=== PATIENT | female | born 1975 | race Hispanic/Latino ===

== ENCOUNTER 2016-09-09 10:28 | Outpatient (CLI) | payer OTHER ==
--- NOTE | 2016-09-09 16:03 | Mammography Report ---
BILATERAL DIGITAL DIAGNOSTIC MAMMOGRAM with CAD and BILATERAL BREAST ULTRASOUND: 09/09/16 CLINICAL: Left breast pain. COMPARISON:03/09/14 bilateral mammogram and 09/27/14 left breast ultrasound FINDINGS: The breasts are heterogeneously dense, which may obscure small masses.New right outer asymmetry on the CC view and a new partially circumscribed asymmetry near a palpable marker on the left MLO view. Ultrasound of the right breast (including all four quadrants and the retroareolar area) was performed and demonstrated numerous benign cysts. A cystic cluster at 11 o'clock 5 cm from the nipple measures 1.0 x 0.3 x 0.6 cm. A benign cyst at 12:30 o'clock 6 cm from the nipple measures 4 x 4 by 4 mm. A benign cystic cluster at 12:30 o'clock 3 cm from the nipple measures 1.2 x 0.8 x 0.6 cm. A benign cystic cluster at 8 o'clock 2 cm from the nipple measures 0.9 x 0.5 x 0.8 cm and a subareolar benign cyst at 3 o'clock measures 0.7 x 0.6 x 0.37 m. No solid mass or shadowing. Ultrasound of the left breast (including all four quadrants and the retroareolar area) was performed. Stable duct ectasia and small cysts at 9:30 o'clock 4 cm from nipple. This subsegmental duct ectasia measures 4.2 x 1.7 x 3.2 cm. A benign cyst at 10 o'clock 8 cm from the nipple measures 1.8 x 0.7 x 1.8 cm and correlates with the new mammographic asymmetry. No solid mass or shadowing. 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 BI-RADS CATEGORY: 2 -- Benign RECOMMENDATION: Routine mammographic screening in one year. COMMENT: Patient follow-up letters are generated by our [employer] application.
== END 2016-09-09 10:29 | disposition home or self-care (01) ==
LOC: SPVWC 10:28
PROVIDERS: ATTEND Obstetrics & Gynecology
DX: N60.01 Solitary cyst of right breast (principal); N60.02 Solitary cyst of left breast; N60.42 Mammary duct ectasia of left breast; N63 Unspecified lump in breast; N64.4 Mastodynia
CPT/HCPCS: 76641; G0204; 77066